=== PATIENT | female | born 1980 | race African-American/Black ===

== ENCOUNTER 2017-10-02 18:19 | Inpatient (IN) | payer OTHER ==
[~2017-10-02] VITALS: Ht 167.6 cm; Wt 82.5 kg
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
[2017-10-02 18:47] VITALS: BP 117/66; PULSE 96; RESP 18; TEMP 97.7; O2SAT 97
[2017-10-02 19:12] LABS: AUTOMATED NEUTROPHIL # 4.7 TH/MM3 (1.8-7.7); BASOPHIL % 0.6 % (0.0-2.0); EOSINOPHIL % 0.5 % (0.0-4.0); HEMATOCRIT 36.1 % (35.0-46.0); HEMOGLOBIN 12.5 GM/DL (11.6-15.3); LYMPH % 34.1 % (9.0-44.0); LYMPHOCYTE # 2.8 TH/MM3 (1.0-4.8); MEAN CELL VOLUME 89.5 FL (80.0-100.0); MEAN CORPUSCULAR HEMOGLOBIN 31.1 PG (27.0-34.0); MEAN CORPUSCULAR HGB CONC 34.7 % (32.0-36.0); MONO % 6.7 % (0.0-8.0); MONOCYTE # 0.5 TH/MM3 (0-0.9); NEUT % 58.1 % (16.0-70.0); PLATELET COUNT 305 TH/MM3 (150-450); RED BLOOD COUNT 4.03 MIL/MM3 (4.00-5.30); RED CELL DISTRIBUTION WIDTH 13.8 % (11.6-17.2); WHITE BLOOD COUNT 8.1 TH/MM3 (4.0-11.0)
[2017-10-02] MEDS ORDERED: OLANZapine IM 10 MG VIAL IM ONE (19:15)
[2017-10-02 19:23] VITALS: BP 101/62; PULSE 89; RESP 16; O2SAT 98
[2017-10-02 19:40] LABS: ALBUMIN 3.8 GM/DL (3.4-5.0); AST (GOT) 24 U/L (15-37); BICARBONATE 22.1 MEQ/L (21.0-32.0); BLOOD UREA NITROGEN 10 MG/DL (7-18); CALCIUM 8.7 MG/DL (8.5-10.1); CHLORIDE 115 MEQ/L (98-107); CREATININE 0.82 MG/DL (0.50-1.00); GLOMERULAR FILTRATION RATE 78 ML/MIN (>89); GLUCOSE,RANDOM 105 MG/DL (74-106); SODIUM (NA) 147 MEQ/L (136-145)
[2017-10-02 19:49] LABS: ALKALINE PHOSPHATASE 79 U/L (45-117); ALT (GPT) 22 U/L (10-53); TOTAL BILIRUBIN ADULT 0.5 MG/DL (0.2-1.0); TOTAL PROTEIN 8.1 GM/DL (6.4-8.2)
[2017-10-02 19:59] LABS: ACETAMINOPHEN LESS THAN 2.0 MCG/ML (10.0-30.0)
--- NOTE | 2017-10-02 20:48 | RADRPT ---
EXAM DATE/TIME: 10/02/2017 20:10 [facility] COMPARISON: No previous studies available for comparison. INDICATIONS : Cephalgia. RADIATION DOSE: 56.35 CTDIvol (mGy) MEDICAL HISTORY : Non-responsive. SURGICAL HISTORY : Non-responsive. ENCOUNTER: Initial ACUITY: 1 day PAIN SCALE: Non-responsive LOCATION: cranial TECHNIQUE: Multiple contiguous axial images were obtained of the head. Using automated exposure control and adj ustment of the mA and/or kV according to patient size, radiation dose was kept as low as reasonably a chievable to obtain optimal diagnostic quality images. DICOM format image data is available electro nically for review and comparison. FINDINGS: CEREBRUM: The ventricles are normal for age. No evidence of midline shift, mass lesion, hemorrhage or acute in farction. No extra-axial fluid collections are seen. POSTERIOR FOSSA: The cerebellum and brainstem are intact. The 4th ventricle is midline. The cerebellopontine angle i s unremarkable. EXTRACRANIAL: The visualized portion of the orbits is intact. SKULL: The calvaria is intact. No evidence of skull fracture. CONCLUSION: 1. No acute intracranial abnormalities. Right periorbital soft tissue swelling. Ulysses Clayton MD on October 02, 2017 at 20:44 Board Certified Radiologist. This report was verified electronically.
--- NOTE | 2017-10-02 21:00 | RADRPT ---
EXAM DATE/TIME: 10/02/2017 20:10 [facility] COMPARISON: No previous studies available for comparison. INDICATIONS : Neck pain. RADIATION DOSE: 23.47 CTDIvol (mGy) MEDICAL HISTORY : Non-responsive. SURGICAL HISTORY : Non-responsive. ENCOUNTER: Initial ACUITY: 1 day PAIN SCALE: Non-responsive LOCATION: neck TECHNIQUE: Volumetric scanning of the cervical spine was performed. Multiplanar reconstructions in the sagittal, coronal and oblique axial planes were performed. Using automated exposure control and adjustment o f the mA and/or kV according to patient size, radiation dose was kept as low as reasonably achievable to obtain optimal diagnostic quality images. DICOM format image data is available electronically f or review and comparison. FINDINGS: VERTEBRAE: Normal vertebral body height. ALIGNMENT: No evidence of subluxation. C2-C3: The bony spinal canal is normal in size. No evidence of disc bulge or herniation. The neural forami na are bilaterally patent. C3-C4: The bony spinal canal is normal in size. No evidence of disc bulge or herniation. The neural forami na are bilaterally patent. C4-C5: The bony spinal canal is normal in size. No evidence of disc bulge or herniation. The neural forami na are bilaterally patent. C5-C6: The bony spinal canal is normal in size. No evidence of disc bulge or herniation. The neural forami na are bilaterally patent. C6-C7: The bony spinal canal is normal in size. No evidence of disc bulge or herniation. The neural forami na are bilaterally patent. C7-T1: The bony spinal canal is normal in size. No evidence of disc bulge or herniation. The neural forami na are bilaterally patent. CONCLUSION: Normal examination for a patient of this age. Ulysses Clayton MD on October 02, 2017 at 20:57 Board Certified Radiologist. This report was verified electronically.
[2017-10-03 00:40] VITALS: BP 91/62; PULSE 74; RESP 16; O2SAT 95
[2017-10-03 17:05] VITALS: BP 132/62; PULSE 88; RESP 18; TEMP 99; O2SAT 98
--- NOTE | 2017-10-03 17:38 | PD ---
History of Present Illness Chief Complaint: Psychiatric Symptoms Time Seen by Provider: 17:20 Travel History International Travel<30 Days: No Contact w/Intl Traveler<30days: No Known affected area: No Legal Status Legal Status: Keen Act Keen Act Signed By: Duong Gregory History of Present Illness: History of Present Illness HPI This is a 37-year-old, single female with history of schizophrenia, bipolar disorder, who presents under Keen act initiated by the [employer]. According to the paperwork, "subject advised she has not taken her medication for schizophrenia due to it making her feel lazy. The subject advised she hear voices that tell her to give up. The subject drank a half bottle of liquor today to self medicate. The subject was running around fell to the ground hitting her head." Paramedics reported to ED provider's that the patient had been aggressive with family members. On arrival to the ED the patient had a blood alcohol level of 288. The patient was allowed to sober up clinically in monitored environment. She presented no behavioral concerns, no aggressive behavior. EMR is reviewed. No previous contact with [facility] psychiatry Department. Patient is seen in J pod. Case is discussed with nursing staff. She is awake, alert, [facility] in [facility], disheveled appearance, swelling of right eye noted. The patient is clinically sober at this time. No signs of withdrawal. Her speech is clear and logical, normal rate and tone. Affect is blunted. She reports auditory hallucinations and describes as" voices that I hear all day long and it is like a story." Mood is described as depressed. Patient denies suicidal or homicidal ideation, intent or plan. She states that they have been worse in the past month when she stopped taking her psychiatric medication due to having missed an appointment at the clinic she attends on [facility]. Past meds include trazodone, Abilify, Risperdal. Telephone call to her sister several times during the day to obtain collateral information at [phone]. Call is rejected. [facility] Past Medical History Bipolar Disorder: Yes Psychiatric: Yes (bipolar, schizophrenia) Schizophrenia: Yes Tetanus Vaccination: Unknown Influenza Vaccination: No ?: Not Psychiatric History Psychiatric History Hx Psychiatric Treatment: Bipolar disorder/schizophrenia. Has been treated at [facility] for 1 year. 2 previous suicide attempts by overdosing on pills as well as drinking rubbing alcohol. No history of self-injurious behavior. History of Inpatient Treatment: Yes Guns or firearms in home: No Social History Born in [facility]. She is single. She has a son approximately age 6 years who has been adopted by his grandmother. Patient is unemployed. She is pending social security disability. Hx Alcohol Use: Yes (1-2x week approx. 1-2 drinks at a time) Hx Tobacco Use: Yes (1/2 pack per week) Hx Substance Use: No Substance Use Type: Alcohol (Denies that she drinks on a daily basis) Hx of Substance Use Treatment: No Family Psychiatric History None reported. Allergies-Medications (Allergen,Severity, Reaction): Coded Allergies: cat dander (Verified Allergy, Unknown, 10/02/17) Review of Systems Psychiatric: COMPLAINS OF: Depression, Hallucinations Except as stated in HPI: all other systems reviewed are Neg Mental Status Examination Appearance: Appropriate, Disheveled ([facility]) Consciousness: Alert Orientation: x4 Motor Activity: Normal gait Speech: Unremarkable Language: Adequate Fund of Knowledge: Adequate Attention and Concentration: Adequate Memory: Unremarkable Mood: Sad Affect: Blunt Thought Process & Associations: Intact, Logical, Goal directed Thought Content: Appropriate Hallucination Type: Auditory Delusion Type: None Suicidal Ideation: No Suicidal Plan: No Suicidal Intention: No Homicidal Ideation: No Homicidal Plan: No Homicidal Intention: No Insight: Fair Judgment: Adequate [facility] Medical Decision Making Medical Record Reviewed: Yes Assessment/Plan This is a 37-year-old, single female with history of schizophrenia, bipolar disorder, who presents under Keen act initiated by the [employer]. According to the paperwork, "subject advised she has not taken her medication for schizophrenia due to it making her feel lazy. The subject advised she hear voices that tell her to give up. The subject drank a half bottle of liquor today to self medicate. The subject was running around fell to the ground hitting her head." Paramedics reported to ED provider's that the patient had been aggressive with family members. On arrival to the ED the patient had a blood alcohol level of 288. Patient was allowed to sober up clinically in secure environment. Patient continues to report auditory hallucinations, depressed mood. Attempts have been made to contact her sister for collateral but I have been unable to obtain any information as I have been unable to contact her sister. We have no previous history with this patient. In view of lack of collateral information the patient will remain under the Keen act and will remain on SMA list for disposition. Orders Orders Complete Blood Count With Diff (10/02/17 18:29) Comprehensive Metabolic Panel (10/02/17 18:29) Thyroid Stimulating Hormone (10/02/17 18:29) Ed Urine Pregnancytest Poc (10/02/17 18:29) Psych Screen (10/02/17 18:29) Drug Screen, Random Urine (10/02/17 18:29) Alcohol (Ethanol) (10/02/17 18:29) Salicylates (Aspirin) (10/02/17 18:29) Tylenol (Acetaminophen) (10/02/17 18:29) Ct Brain W/O Iv Contrast(Rout) (10/02/17 ) Ct Cerv Spine W/O Contrast (10/02/17 ) Olanzapine Inj (Zyprexa Inj) (10/02/17 19:15) Diet Regular Basic (10/03/17 Breakfast) Diet Regular Basic (10/03/17 Lunch) Results Vital Signs Date Time Temp Pulse Resp B/P (MAP) Pulse Ox O2 Delivery O2 Flow Rate FiO2 10/03/17 00:40 74 16 91/62 (72) 95 Room Air 10/02/17 19:23 89 16 101/62 (75) 98 Room Air 10/02/17 18:47 97.7 96 18 117/66 (83) 97 Room Air Laboratory Tests Test 10/02/17 17:43 White Blood Count 8.1 Red Blood Count 4.03 Hemoglobin 12.5 Hematocrit 36.1 Mean Corpuscular Volume 89.5 Mean Corpuscular Hemoglobin 31.1 Mean Corpuscular Hemoglobin Concent 34.7 Red Cell Distribution Width 13.8 Platelet Count 305 Mean Platelet Volume 8.0 Neutrophils (%) (Auto) 58.1 Lymphocytes (%) (Auto) 34.1 Monocytes (%) (Auto) 6.7 Eosinophils (%) (Auto) 0.5 Basophils (%) (Auto) 0.6 Neutrophils # (Auto) 4.7 Lymphocytes # (Auto) 2.8 Monocytes # (Auto) 0.5 Eosinophils # (Auto) 0.0 Basophils # (Auto) 0.0 CBC Comment DIFF FINAL Differential Comment Blood Urea Nitrogen 10 Creatinine 0.82 Random Glucose 105 Total Protein 8.1 Albumin 3.8 Calcium Level 8.7 Alkaline Phosphatase 79 Aspartate Amino Transf (AST/SGOT) 24 Alanine Aminotransferase (ALT/SGPT) 22 Total Bilirubin 0.5 Sodium Level 147 Potassium Level 3.7 Chloride Level 115 Carbon Dioxide Level 22.1 Anion Gap 10 Estimat Glomerular Filtration Rate 78 Thyroid Stimulating Hormone 3rd Gen 1.010 Salicylates Level LESS THAN 1.7 Urine Opiates Screen NEG Acetaminophen Level LESS THAN 2.0 Urine Barbiturates Screen NEG Urine Amphetamines Screen NEG Urine Benzodiazepines Screen NEG Urine Cocaine Screen NEG Urine Cannabinoids Screen NEG Ethyl Alcohol Level 288 Diagnosis Primary Impression: Medical clearance for psychiatric admission Additional Impressions: Alcohol intoxication Schizophrenia Problem Qualifiers Additional Impressions: Alcohol intoxication Qualified Codes: F10.920 - Alcohol use, unspecified with intoxication, uncomplicated Schizophrenia Qualified Codes: F20.89 - Other schizophrenia Dolores Luevano [facility] October 03, 2017 17:37
[2017-10-04 03:21] VITALS: BP 102/61; PULSE 80; RESP 18; O2SAT 98
[2017-10-04] MEDS ORDERED: ACETAMINOPHEN 325 MG TAB PO PRN (07:30)
[2017-10-04] MEDS ORDERED: LORazepam 2 MG/ML VIAL IV PUSH PRN ×4 (07:30)
[2017-10-04] MEDS ORDERED: ALUMINUM/MAGNESIUM/SIMETH 30 ML CUP PO PRN (07:30)
[2017-10-04] MEDS ORDERED: MAGNESIUM HYDROXIDE SUSP 30 ML CUP PO PRN (07:30)
[2017-10-04] MEDS ORDERED: LORazepam 2 MG/ML VIAL IM PRN ×2 (07:30)
[2017-10-04] MEDS ORDERED: LORazepam 0.5 MG TAB PO PRN (07:30)
[2017-10-04] MEDS ORDERED: LORazepam 1 MG TAB PO PRN ×2 (07:30)
[2017-10-04] MEDS ORDERED: FLUMAZENIL 0.5 MG/5 ML VIAL IV PUSH PRN (07:30)
[2017-10-04] MEDS ORDERED: LORazepam 2 MG TAB PO PRN (07:30)
[2017-10-04 10:13] VITALS: BP 124/74; PULSE 88; RESP 16; O2SAT 100
[2017-10-04] MEDS: NICOTINE 21 MG/24 HR PATCH T-DERMAL SCH (10:39)
--- NOTE | 2017-10-04 11:45 | HHI.HP ---
Provisional Diagnosis Admission Date October 04, 2017 at 07:28 [place] I. Schizophrenia [place] II. Deferred [place] III. Hypertension [place] IV. Unemployed, noncompliant with medication [place] V. 40 Certification of Person's Competence To Provide Express and Informed Consent I have personally examined Kimberly Milligan , a person being served at [facility] on, October 04, 2017 11:30. Express and informed consent means consent voluntarily given in writing, by a competent person, after sufficient explanation and disclosure of the subject matter involved to enable the person to make a knowing and willful decision without any element of force, fraud, deceit, duress, or other form of constraint or coercion. This person is 18 years of age or older, is not now known to be incompetent to consent to treatment with a guardian advocate, and does not have a health care surrogate or proxy currently making medical treatment decisions. I have found this person to be one of the following: [] Competent to provide express and informed consent, as defined above, for voluntary admission to this facility and is competent to provide express and informed consent for treatment. He/she has the consistent capacity to make well reasoned, willful, and knowing decisions concerning his or her medical or mental health treatment. The person fully and consistently understands the purpose of the admission for examination/placement and is fully capable of personally exercising all rights assured under [place] Incompetent to provide express and informed consent to voluntary admission, and this is incompetent to provide express and informed consent to treatment. The person must be transferred to involuntary status and a petition for a guardian advocate filed with the Circuit Court. [x] Refusing to provide express and informed consent to voluntary admission but is competent to provide express and informed consent for treatment. The person must be discharged or transferred to involuntary status. Form shall be completed within 24 hours of a person's arrival at the receiving facility and filed in the clinical record of each person: 1. Admitted on a voluntary basis 2. Permitted to provide express and informed consent to his/her own treatment 3. Allowed to transfer from involuntary to voluntary status 4. Prior to permitting a person to consent to his or her own treatment after having been previously found incompetent to consent to treatment. History of Present Illness Capacity: Has Capacity HPI The patient is a 37-year-old -[place] woman, single, domiciled in [place] with her sister, unemployed, supported by disability, first time at [facility], with psychiatric history of schizophrenia, bipolar disorder, for previous psychiatric hospitalizations, last hospitalization was in 2011 in [place], the patient received outpatient psychiatric care in [facility], she is supposed to be in Abilify, Risperdal and trazodone, but the patient has not been compliant her medications, she has medical history hypertension, the patient was seen yesterday by Ms. Luevano in the J-[facility], documentation reviewed. She presents under [place] act initiated by the Police Department. According to the paperwork, "subject advised she has not taken her medication for schizophrenia due to it making her feel lazy. The subject advised she hear voices that tell her to give up. The subject drank a half bottle of liquor today to self medicate. The subject was running around fell to the ground hitting her head." Paramedics reported to ED provider's that the patient had been aggressive with family members. On arrival to the ED the patient had a blood alcohol level of 288. The patient was allowed to sober up clinically in monitored environment. She presented no behavioral concerns, no aggressive behavior.EMR is reviewed. Case widely discussed with nurse in charge. On psychiatric evaluation the patient is calm, superficially cooperative in her bed. The patient reports that she does not really know the reason she is here. She says that she has been very depressed lately and she has been hearing voices telling her to kill herself. Patient reports that she has not been taking her medications lately "they may be tired". She says that she has been using alcohol more often to check down the voices, "but to be honest I do not drink alcohol every day". She denies the use of other illegal drugs, denies withdrawal, denies history detox and rehab. At this moment the patient denies suicidal and homicidal ideation. She seems to be logical, coherent and relevant, however, she has been internally preoccupied and paranoid in the unit. Patient is fully oriented 3, no attention deficit, no gross cognitive impairment present. Collateral information from sister, telephone [phone] was attempted unsuccessfully. Review of Systems Constitutional: DENIES: Diaphoretic episodes, Fatigue, Fever, Weight gain, Weight loss, Chills, Dizziness, Change in appetite, Night Sweats Endocrine: DENIES: Abnorml menstrual pattern, Heat/cold intolerance, Polydipsia , Polyuria, Polyphagia Eyes: DENIES: Blurred vision, Diplopia, Eye inflammation, Eye pain, Vision loss , Photosensitivity, Double Vision Ears, nose, mouth, throat: DENIES: Tinnitus, Hearing loss, Vertigo, Nasal discharge, Oral lesions, Throat pain, Hoarseness, Ear Pain, Running Nose, Epistaxis, Sinus Pain, Toothache, Odynophagia Respiratory: DENIES: Apneas, Cough, Snoring, Wheezing, Hemoptysis, Sputum production, Shortness of breath Cardiovascular: DENIES: Chest pain, Palpitations, Syncope, Dyspnea on Exertion , PND, Lower Extremity Edema, Orthopnea, Claudication Gastrointestinal: DENIES: Abdominal pain, Black stools, Bloody stools, Constipation, Diarrhea, Nausea, Vomiting, Difficulty Swallowing, Anorexia Genitourinary: DENIES: Abnormal vaginal bleeding, Dysmenorrhea, Dyspareunia, Sexual dysfunction, Urinary frequency, Urinary incontinence, Urgency, Hematuria , Dysuria, Nocturia, Vaginal discharge Musculoskeletal: DENIES: Joint pain, Muscle aches, Stiffness, Joint Swelling, Back pain, Neck pain Integumentary: DENIES: Abnormal pigmentation, Pruritus, Rash, Nail changes, Breast masses, Breast skin changes, Nipple discharge Hematologic/lymphatic: DENIES: Bruising, Lymphadenopathy Immunologic/allergic: DENIES: Eczema, Urticaria Neurologic: DENIES: Abnormal gait, Headache, Localized weakness, Paresthesias, Seizures, Speech Problems, Tremor, Poor Balance Psychiatric: COMPLAINS OF: Hallucinations, Suicidal Ideation, DENIES: Anxiety, Confusion, Mood changes, Depression, Agitation, Homicidal Ideation, Delusions Past Psych History Violence risk - self (6 mos) Increased Substance Abuse History Drugs/Alcohol past 12 months Patient reports occasional use of alcohol, denies marijuana, denies cocaine, heroine and mother illegal drugs Past Family Social History Coded Allergies: cat dander (Verified Allergy, Unknown, 10/02/17) Current Medications Medications (Trade) Dose Ordered Sig/Manda Route Start Time Stop Time Status Last Admin (Ativan) 1 mg Q6H PRN PO 10/04/17 07:30 (Ativan Inj) 1 mg Q6H PRN IM 10/04/17 07:30 (Tylenol) 650 mg Q4H PRN PO 10/04/17 07:30 (Milk Of Magnesia Liq) 30 ml DAILY PRN PO 10/04/17 07:30 (Mag-Al Plus Susp Liq) 30 ml Q6H PRN PO 10/04/17 07:30 (Habitrol 21 Mg Patch.24 Hr) 1 patch DAILY T-DERMAL 10/04/17 09:00 10/04/17 10:39 (Romazicon Inj) 0.2 mg Q1M PRN IV PUSH 10/04/17 07:30 (Ativan) 1 mg Q4H PRN PO 10/04/17 07:30 (Ativan Inj) 1 mg Q4H PRN IV PUSH 10/04/17 07:30 (Ativan) 2 mg Q2H PRN PO 10/04/17 07:30 (Ativan Inj) 2 mg Q2H PRN IV PUSH 10/04/17 07:30 (Ativan Inj) 2 mg Q1H PRN IV PUSH 10/04/17 07:30 (Ativan Inj) 2 mg Q15M PRN IV PUSH 10/04/17 07:30 Miscellaneous Information 1 HS T-DERMAL 10/04/17 21:00 Family Psych History No family psychiatric history Social History Patient was born and raised in [facility], she lives in [place] with her sister, she is single, unemployed, supported by [email or web address], her highest level of education is 11th grade Patient's Strengths (min. 2) Verbal communication/family support Physical Exam No tremors, no EPS, no stiffness, no withdrawal symptoms, she does present a mild psychomotor retardation. Vital Signs Vital Signs Date Time Temp Pulse Resp B/P (MAP) Pulse Ox O2 Delivery O2 Flow Rate FiO2 10/04/17 10:13 88 16 124/74 (91) 100 Room Air 10/03/17 17:05 99.0 Mental Status Examination Appearance: Appropriate, Disheveled (In [facility]) Consciousness: Alert Orientation: x4 Motor Activity: Normal gait Speech: Unremarkable Language: Adequate Fund of Knowledge: Adequate Attention and Concentration: Adequate Memory: Unremarkable Mood: Sad Affect: Blunt Thought Process & Associations: Intact, Logical, Goal directed Thought Content: Appropriate Hallucination Type: Auditory Delusion Type: None Suicidal Ideation: No Suicidal Plan: No Suicidal Intention: No Homicidal Ideation: No Homicidal Plan: No Homicidal Intention: No Insight: Poor Judgment: Poor Assessment & Plan Problem List: (1) Schizophrenia ICD Codes: F20.9 - Schizophrenia, unspecified Status: Acute Assessment & Plan: On psychiatric evaluation today the patient presents kind of distant, superficial, minimizing her recent actions that brought her to the hospital on the [place] act. Patient does report that she has been feeling depressed, worthless, helpless and hopeless, with increased suicidal thoughts, but no plan. She also reports perceptual disturbances, hearing voices making derogatory comments toward her and commanding her to commit suicide. Patient has a very flat affect, she seems to be internally preoccupied and paranoid. She has a long history of schizophrenia, multiple psychiatric hospitalizations, suicide attempts, and she has not been taking her psychotropics for a few weeks now. The patient has an elevated risk of danger to self and others due to the level of psychosis. Patient will be admitted in psychiatry. We will start Risperdal 1 mg twice daily, trazodone 100 mg at bedtime. Consult psychiatry for second opinion. ship worker intervention for psychosocial assessment, collateral information, individual and group therapies, to coordinate safe discharge. I also order CIWA for potential symptoms of alcohol withdrawal. (2) Alcohol intoxication ICD Codes: F10.929 - Alcohol use, unspecified with intoxication, unspecified Status: Acute Assessment & Plan: She is now clinically sober. No withdrawal symptoms present or reported. will start CIWA. Assessment & Plan Estimated LOS: days Problem Qualifiers (1) Schizophrenia: Qualified Codes: F20.89 - Other schizophrenia (2) Alcohol intoxication: Qualified Codes: F10.920 - Alcohol use, unspecified with intoxication, uncomplicated Hardeep Sierra MD October 04, 2017 11:45
[2017-10-04 12:21] VITALS: BP 143/97; PULSE 88; RESP 18; TEMP 98.7; O2SAT 98
[2017-10-04] MEDS: risperiDONE 0.5 MG TAB PO SCH ×2 (13:00→20:51)
[2017-10-04 18:17] VITALS: BP 132/84; PULSE 95; RESP 18; TEMP 98.1; O2SAT 100
[2017-10-04] MEDS: REMOVE OLD NICODERM (NICOTINE) PATCH T-DERMAL SCH (20:51)
[2017-10-04] MEDS ORDERED: traZODone HCL 100 MG TAB PO SCH (21:00)
[2017-10-05 05:46] VITALS: BP 111/70; PULSE 89; RESP 16; TEMP 97.7; O2SAT 99
[2017-10-05] MEDS: risperiDONE 0.5 MG TAB PO SCH (08:25)
[2017-10-05] MEDS: NICOTINE 21 MG/24 HR PATCH T-DERMAL SCH (08:25)
[2017-10-05 11:07] LABS: BICARBONATE 28.4 MEQ/L (21.0-32.0); BLOOD UREA NITROGEN 12 MG/DL (7-18); CALCIUM 8.6 MG/DL (8.5-10.1); CHLORIDE 106 MEQ/L (98-107); CHOLESTEROL 137 MG/DL (120-200); CHOLESTEROL/ HDL RATIO 2.34 RATIO; CREATININE 0.84 MG/DL (0.50-1.00); GLOMERULAR FILTRATION RATE 92 ML/MIN (>89); GLUCOSE,RANDOM 125 MG/DL (74-106); HDL CHOLESTEROL 58.4 MG/DL (40.0-60.0); LDL CHOLESTEROL 55 MG/DL (0-99); SODIUM (NA) 142 MEQ/L (136-145); TRIGLYCERIDES 119 MG/DL (42-150)
[2017-10-05 16:35] LABS: HEMOGLOBIN A1C 5.2 % (4.3-6.0)
[2017-10-05 16:48] VITALS: BP 134/86; PULSE 97; RESP 17; TEMP 97.2; O2SAT 99
--- NOTE | 2017-10-05 17:21 | PD.PSY.CON ---
Provisional Diagnosis Admission Date October 04, 2017 at 07:28 [place] I. Schizophrenia [place] II. Deferred [place] III. Hypertension [place] IV. Unemployed, noncompliant with medication [place] V. 40 History of Present Illness Service Psychiatry Consult Requested By Dr. Sierra Reason for Consult Second opinion Primary Care Physician No Primary Care Physician HPI The patient is a 37-year-old -[place] woman, single, domiciled in [place] with her sister, unemployed, supported by disability, first time at [facility], with psychiatric history of schizophrenia, bipolar disorder, for previous psychiatric hospitalizations, last hospitalization was in 2011 in [place], the patient received outpatient psychiatric care in [facility], she is supposed to be in Abilify, Risperdal and trazodone, but the patient has not been compliant her medications, she has medical history hypertension, the patient was seen yesterday by Ms. Luevano in the [facility], documentation reviewed. She presents under Keen act initiated by the Police Department. According to the paperwork, "subject advised she has not taken her medication for schizophrenia due to it making her feel lazy. The subject advised she hear voices that tell her to give up. The subject drank a half bottle of liquor today to self medicate. The subject was running around fell to the ground hitting her head." Paramedics reported to ED provider's that the patient had been aggressive with family members. On arrival to the ED the patient had a blood alcohol level of 288. The patient was allowed to sober up clinically in monitored environment. She presented no behavioral concerns, no aggressive behavior.EMR is reviewed. Case widely discussed with nurse in charge. On psychiatric evaluation the patient is calm, superficially cooperative in her bed. The patient reports that she does not really know the reason she is here. She says that she has been very depressed lately and she has been hearing voices telling her to kill herself. Patient reports that she has not been taking her medications lately "they may be tired". She says that she has been using alcohol more often to check down the voices, "but to be honest I do not drink alcohol every day". She denies the use of other illegal drugs, denies withdrawal, denies history detox and rehab. At this moment the patient denies suicidal and homicidal ideation. She seems to be logical, coherent and relevant, however, she has been internally preoccupied and paranoid in the unit. Patient is fully oriented 3, no attention deficit, no gross cognitive impairment present. Collateral information from sister, telephone [phone] was attempted unsuccessfully. 10/05/17 -second opinion Patient is a 29-year-old -[place] woman, single, domiciled with sister, unemployed on SSI, with a past psychiatric history of schizophrenia, bipolar disorder, with previous psychiatric admissions (last in 2011 [place]), has outpatient follow-up at [facility], with a past medical history significant for hypertension, who was brought in under Keen act initiated by police stating "subject advised she has not taken her medication for schizophrenia due to it making her feel lazy. The subject advised she hear voices that tell her to give up. The subject drank a half bottle of liquor today to self medicate. The subject was running around fell to the ground hitting her head" along with aggressive behavior with family in the context of alcohol intoxication. Patient was found sitting in hospital bed today noted B, cooperative. Patient recalls having had her sister called EMS because she fell, "I had a little to drink" recalls having 2 shots of liquor. Patient states that she usually drinks alcohol 1 to times a month, reports having run out of her medications back in July 2017 and having last seen her psychiatrist in 2016. Patient states that she has auditory hallucinations "off-and-on" and usually occurs when she is feeling depressed, stressed out. Patient reports last time she had auditory hallucination was months ago. Patient reports feeling depressed at this time with difficulty with sleep, racing thoughts "a little bit", denies any changes in appetite or concentration but is currently having feelings of guilt due to "family issues" which she did not elaborate on. Patient denies any recent suicide ideations, denies any previous suicide attempts and denies any perceptional services or delusions at this time. Patient states that she has reported to her flight communications officer, Tiesha Chanye ([address] ). Collateral contact his sister Nely Milligan [phone]. Past Family Social History Coded Allergies: cat dander (Verified Allergy, Unknown, 10/02/17) Current Medications Medications (Trade) Dose Ordered Sig/Manda Route Start Time Stop Time Status Last Admin (Ativan) 1 mg Q6H PRN PO 10/04/17 07:30 (Ativan Inj) 1 mg Q6H PRN IM 10/04/17 07:30 (Tylenol) 650 mg Q4H PRN PO 10/04/17 07:30 (Milk Of Magnesia Liq) 30 ml DAILY PRN PO 10/04/17 07:30 (Mag-Al Plus Susp Liq) 30 ml Q6H PRN PO 10/04/17 07:30 (Habitrol 21 Mg Patch.24 Hr) 1 patch DAILY T-DERMAL 10/04/17 09:00 10/04/17 10:39 (Romazicon Inj) 0.2 mg Q1M PRN IV PUSH 10/04/17 07:30 (Ativan) 1 mg Q4H PRN PO 10/04/17 07:30 (Ativan Inj) 1 mg Q4H PRN IV PUSH 10/04/17 07:30 (Ativan) 2 mg Q2H PRN PO 10/04/17 07:30 (Ativan Inj) 2 mg Q2H PRN IV PUSH 10/04/17 07:30 (Ativan Inj) 2 mg Q1H PRN IV PUSH 10/04/17 07:30 (Ativan Inj) 2 mg Q15M PRN IV PUSH 10/04/17 07:30 Miscellaneous Information 1 HS T-DERMAL 10/04/17 21:00 10/04/17 20:51 (risperDAL) 1 mg BID PO 10/05/17 21:00 (Benadryl) 50 mg HS PO 10/05/17 21:00 Patient's Strengths (min. 2) Verbal communication/family support Physical Exam Vital Signs Vital Signs Date Time Temp Pulse Resp B/P (MAP) Pulse Ox O2 Delivery O2 Flow Rate FiO2 10/05/17 16:48 97.2 97 17 134/86 (102) 99 10/04/17 10:13 Room Air Lab Results Test 10/05/17 10:13 Blood Urea Nitrogen 12 MG/DL Creatinine 0.84 MG/DL Random Glucose 125 MG/DL Calcium Level 8.6 MG/DL Sodium Level 142 MEQ/L Potassium Level 3.4 MEQ/L Chloride Level 106 MEQ/L Carbon Dioxide Level 28.4 MEQ/L Anion Gap 8 MEQ/L Estimat Glomerular Filtration Rate 92 ML/MIN Triglycerides Level 119 MG/DL Cholesterol Level 137 MG/DL LDL Cholesterol 55 MG/DL HDL Cholesterol 58.4 MG/DL Cholesterol/HDL Ratio 2.34 RATIO Mental Status Examination Appearance: Appropriate, Disheveled (In hospital [facility]) Consciousness: Alert Orientation: x4 Motor Activity: Normal gait Speech: Unremarkable Language: Adequate Fund of Knowledge: Adequate Attention and Concentration: Adequate Memory: Unremarkable Mood: Sad, Anxious Affect: Blunt Thought Process & Associations: Intact, Logical, Goal directed Thought Content: Appropriate Hallucination Type: Auditory (Denies at this time) Delusion Type: None Suicidal Ideation: No Suicidal Plan: No Suicidal Intention: No Homicidal Ideation: No Homicidal Plan: No Homicidal Intention: No Insight: Poor Judgment: Poor Assessment & Plan Problem List: (1) Schizophrenia ICD Codes: F20.9 - Schizophrenia, unspecified Status: Acute (2) Alcohol intoxication ICD Codes: F10.929 - Alcohol use, unspecified with intoxication, unspecified Status: Acute Assessment & Plan I have seen and examined this patient, reviewed the documentation, discussed personally with Dr. Sierra, and I agree and concur with his assessment and plan. Consult appreciated. Patient at this time will continue with risperidone 1 mg p.o. twice daily, will add Benadryl 50 mg p.o. at bedtime for sleep disturbance, continue rest of medications. Continue monitor mood and behavior. Patient was counseled on importance of abstinence from alcohol use. Collateral information pending from sister. Discharge planning in progress. Discharge Planning Patient return back to her sister's residence was psychiatrically stable. Problem Qualifiers (1) Schizophrenia: Qualified Codes: F20.89 - Other schizophrenia (2) Alcohol intoxication: Qualified Codes: F10.920 - Alcohol use, unspecified with intoxication, uncomplicated Rodo Noriega MD October 05, 2017 17:21
[2017-10-05] MEDS: risperiDONE 1 MG TAB PO SCH (21:00)
[2017-10-05] MEDS: REMOVE OLD NICODERM (NICOTINE) PATCH T-DERMAL SCH (21:00)
[2017-10-05] MEDS: diphenhydrAMINE HCL 50 MG CAP PO SCH (21:40)
[2017-10-06 05:48] VITALS: BP 105/65; PULSE 82; RESP 18; TEMP 97.9; O2SAT 98
[2017-10-06] MEDS: NICOTINE 21 MG/24 HR PATCH T-DERMAL SCH (09:00)
[2017-10-06] MEDS: risperiDONE 1 MG TAB PO SCH ×2 (09:18→21:17)
[2017-10-06 16:36] VITALS: BP 124/72; PULSE 88; RESP 17; TEMP 98.1; O2SAT 100
--- NOTE | 2017-10-06 17:42 | HHI.PYPN ---
Subjective Remarks Patient seen for follow-up, chart reviewed. Discussion with nursing staff reported that the patient seclusive to her room, denies SI, HI, or AVH. Patient was found ambulating on the unit noted B, cooperative. Patient states that she was able to rest last evening feels the medications "working pretty good" states her mood has been "okay". Patient reports tolerating medications well, mentions wanting to be referred to the [facility] in [place] for outpatient follow-up. Patient denies any SI, HI, or perceptual disturbances at this time. Collateral update from patient's sister which presents to express concerns of patient's history of nonadherence. Review of Systems Except as stated in HPI: all other systems reviewed are Neg Mental Status Examination Appearance: Appropriate, Disheveled (In [facility]) Consciousness: Alert Orientation: x4 Motor Activity: Normal gait Speech: Unremarkable Language: Adequate Fund of Knowledge: Adequate Attention and Concentration: Adequate Memory: Unremarkable Mood: Anxious Affect: Blunt (Slightly more reactive today) Thought Process & Associations: Intact, Logical, Goal directed Thought Content: Appropriate Hallucination Type: Auditory (Denies at this time) Delusion Type: None Suicidal Ideation: No Suicidal Plan: No Suicidal Intention: No Homicidal Ideation: No Homicidal Plan: No Homicidal Intention: No Insight: Fair Judgment: Impulsive Results Vitals/IOs Vital Signs Date Time Temp Pulse Resp B/P (MAP) Pulse Ox O2 Delivery O2 Flow Rate FiO2 10/06/17 16:36 98.1 88 17 124/72 (89) 100 10/04/17 10:13 Room Air Assessment & Plan Problem List: (1) Schizophrenia ICD Codes: F20.9 - Schizophrenia, unspecified Status: Acute (2) Alcohol intoxication ICD Codes: F10.929 - Alcohol use, unspecified with intoxication, unspecified Status: Acute Assessment & Plan Patient this time noted with improvement in mood, denying any SI, or perceptual disturbances today. Continue current treatment. Continue monitor mood and behavior. Discharge planning in progress. Justification for Cont. Inpt. At risk for further decompensation at lower level of care. Discharge Planning Patient will return to live with sister. Problem Qualifiers (1) Schizophrenia: Qualified Codes: F20.89 - Other schizophrenia (2) Alcohol intoxication: Qualified Codes: F10.920 - Alcohol use, unspecified with intoxication, uncomplicated Rodo Noriega MD October 06, 2017 17:42
[2017-10-06 18:09] LABS: BICARBONATE 28.2 MEQ/L (21.0-32.0); CALCIUM 8.3 MG/DL (8.5-10.1); CREATININE 0.76 MG/DL (0.50-1.00)
[2017-10-06] MEDS: REMOVE OLD NICODERM (NICOTINE) PATCH T-DERMAL SCH (21:00)
[2017-10-06] MEDS: diphenhydrAMINE HCL 50 MG CAP PO SCH (21:18)
[2017-10-07 06:12] VITALS: BP 130/79; PULSE 69; RESP 18; TEMP 98.1; O2SAT 96
[2017-10-07] MEDS: risperiDONE 1 MG TAB PO SCH ×2 (08:41→21:33)
[2017-10-07] MEDS: NICOTINE 21 MG/24 HR PATCH T-DERMAL SCH (08:41)
--- NOTE | 2017-10-07 11:27 | HHI.PYPN ---
Subjective Remarks Patient was seen and case discussed with nursing. Patient's CIWA 0. Patient says she is "feeling okay." She describes her mood as a 5 out of 10. She denies suicidal or homicidal ideation. Affect is blunted. Compliant with medications Mental Status Examination Appearance: Appropriate, Disheveled (In hospital [facility]) Consciousness: Alert Orientation: x4 Motor Activity: Normal gait Speech: Unremarkable Language: Adequate Fund of Knowledge: Adequate Attention and Concentration: Adequate Memory: Unremarkable Mood: Sad Affect: Blunt (Slightly more reactive today), Anxious Thought Process & Associations: Intact, Logical, Goal directed Thought Content: Appropriate Hallucination Type: Auditory (Denies at this time) Delusion Type: None Suicidal Ideation: No Suicidal Plan: No Suicidal Intention: No Homicidal Ideation: No Homicidal Plan: No Homicidal Intention: No Insight: Fair Judgment: Impulsive Results Vitals/IOs Vital Signs Date Time Temp Pulse Resp B/P (MAP) Pulse Ox O2 Delivery O2 Flow Rate FiO2 10/07/17 06:12 98.1 69 18 130/79 (96) 96 10/04/17 10:13 Room Air Intake and Output 10/07/17 10/07/17 10/08/17 08:00 16:00 00:00 Intake Total 480 ml Balance 480 ml Assessment & Plan Problem List: (1) Schizophrenia ICD Codes: F20.9 - Schizophrenia, unspecified Status: Acute (2) Alcohol intoxication ICD Codes: F10.929 - Alcohol use, unspecified with intoxication, unspecified Status: Acute Assessment & Plan Continue current treatment plan Justification for Cont. Inpt. Patient would decompensate in a less restrictive setting Problem Qualifiers (1) Schizophrenia: Qualified Codes: F20.89 - Other schizophrenia (2) Alcohol intoxication: Qualified Codes: F10.920 - Alcohol use, unspecified with intoxication, uncomplicated Ben Castaneda DO October 07, 2017 11:27
[2017-10-07 17:16] VITALS: BP 126/71; PULSE 81; RESP 18; TEMP 97.8; O2SAT 99
[2017-10-07] MEDS: diphenhydrAMINE HCL 50 MG CAP PO SCH (21:33)
[2017-10-07] MEDS: REMOVE OLD NICODERM (NICOTINE) PATCH T-DERMAL SCH (21:34)
[2017-10-08 06:08] VITALS: BP 102/60; PULSE 91; RESP 16; TEMP 98.1; O2SAT 100
[2017-10-08] MEDS: risperiDONE 1 MG TAB PO SCH ×2 (08:50→21:50)
[2017-10-08] MEDS: NICOTINE 21 MG/24 HR PATCH T-DERMAL SCH (08:51)
--- NOTE | 2017-10-08 11:27 | HHI.PYPN ---
Subjective Remarks Patient was seen and case discussed with nursing. CIWA is 0. Patient has been visiting with her sister. They are discussing appropriate behavior. Today, she admits any auditory or visual hallucinations. No delusions were elicited. Mildly guarded and vigilant during the interview. Compliant with medications. Denies suicidal or homicidal ideation intent or plan. Mental Status Examination Appearance: Appropriate, Disheveled (In [facility]) Consciousness: Alert Orientation: x4 Motor Activity: Normal gait Speech: Unremarkable Language: Adequate Fund of Knowledge: Adequate Attention and Concentration: Adequate Memory: Unremarkable Mood: Appropriate Affect: Anxious Thought Process & Associations: Intact, Logical, Goal directed Thought Content: Appropriate Hallucination Type: Auditory (Denies at this time) Delusion Type: Paranoid (Mildly vigilant) Suicidal Ideation: No Suicidal Plan: No Suicidal Intention: No Homicidal Ideation: No Homicidal Plan: No Homicidal Intention: No Insight: Fair Judgment: Impulsive Results Vitals/IOs Vital Signs Date Time Temp Pulse Resp B/P (MAP) Pulse Ox O2 Delivery O2 Flow Rate FiO2 10/08/17 06:08 98.1 91 16 102/60 (74) 100 10/04/17 10:13 Room Air Assessment & Plan Problem List: (1) Schizophrenia ICD Codes: F20.9 - Schizophrenia, unspecified Status: Acute (2) Alcohol intoxication ICD Codes: F10.929 - Alcohol use, unspecified with intoxication, unspecified Status: Acute Assessment & Plan Continue current treatment plan Justification for Cont. Inpt. Patient would decompensate in a less restrictive setting Problem Qualifiers (1) Schizophrenia: Qualified Codes: F20.89 - Other schizophrenia (2) Alcohol intoxication: Qualified Codes: F10.920 - Alcohol use, unspecified with intoxication, uncomplicated Ben Castaneda DO October 08, 2017 11:27
[2017-10-08 17:43] VITALS: BP 119/57; PULSE 105; RESP 18; TEMP 98.4; O2SAT 100
[2017-10-08] MEDS: diphenhydrAMINE HCL 50 MG CAP PO SCH (21:50)
[2017-10-08] MEDS: REMOVE OLD NICODERM (NICOTINE) PATCH T-DERMAL SCH (21:52)
[2017-10-09 06:26] VITALS: BP 117/74; PULSE 94; RESP 18; TEMP 97.7; O2SAT 100
[2017-10-09] MEDS: NICOTINE 21 MG/24 HR PATCH T-DERMAL SCH (07:38)
[2017-10-09] MEDS: risperiDONE 1 MG TAB PO SCH (08:31)
[2017-10-09] MEDS ORDERED: RISP1 PO (12:19)
[2017-10-09] MEDS ORDERED: DIPH50CA PO (12:19)
--- NOTE | 2017-10-09 12:20 | HHI.DS ---
Psychiatry Discharge Summary Inpatient Psychiatric care?: Yes Advance Directive: No Mental Health AdvanceDirective: No Health Care Proxy: No Admission Admission Date October 04, 2017 at 07:28 Admission Diagnosis: (1) Schizophrenia ICD Code: F20.9 - Schizophrenia, unspecified Brief History The patient is a 37-year-old -[place] Citizen woman, single, domiciled in [place] with her sister, unemployed, supported by disability, first time at [facility], with psychiatric history of schizophrenia, bipolar disorder, for previous psychiatric hospitalizations, last hospitalization was in 2011 in [place], the patient received outpatient psychiatric care in [facility], she is supposed to be in Abilify, Risperdal and trazodone, but the patient has not been compliant her medications, she has medical history hypertension, the patient was seen yesterday by Ms. Luevano in the [facility], documentation reviewed. She presents under [place] act initiated by the Police Department. According to the paperwork, "subject advised she has not taken her medication for schizophrenia due to it making her feel lazy. The subject advised she hear voices that tell her to give up. The subject drank a half bottle of liquor today to self medicate. The subject was running around fell to the ground hitting her head." Paramedics reported to ED provider's that the patient had been aggressive with family members. On arrival to the ED the patient had a blood alcohol level of 288. The patient was allowed to sober up clinically in monitored environment. She presented no behavioral concerns, no aggressive behavior.EMR is reviewed. Case widely discussed with nurse in charge. On psychiatric evaluation the patient is calm, superficially cooperative in her bed. The patient reports that she does not really know the reason she is here. She says that she has been very depressed lately and she has been hearing voices telling her to kill herself. Patient reports that she has not been taking her medications lately "they may be tired". She says that she has been using alcohol more often to check down the voices, "but to be honest I do not drink alcohol every day". She denies the use of other illegal drugs, denies withdrawal, denies history detox and rehab. At this moment the patient denies suicidal and homicidal ideation. She seems to be logical, coherent and relevant, however, she has been internally preoccupied and paranoid in the unit. Patient is fully oriented 3, no attention deficit, no gross cognitive impairment present. Collateral information from sister, telephone [phone] was attempted unsuccessfully. 10/05/17 -second opinion Patient is a 29-year-old -[place] Citizen woman, single, domiciled with sister, unemployed on SSI, with a past psychiatric history of schizophrenia, bipolar disorder, with previous psychiatric admissions (last in 2011 [place]), has outpatient follow-up at [facility], with a past medical history significant for hypertension, who was brought in under [place] act initiated by police stating "subject advised she has not taken her medication for schizophrenia due to it making her feel lazy. The subject advised she hear voices that tell her to give up. The subject drank a half bottle of liquor today to self medicate. The subject was running around fell to the ground hitting her head" along with aggressive behavior with family in the context of alcohol intoxication. Patient was found sitting in hospital bed today noted B, cooperative. Patient recalls having had her sister called EMS because she fell, "I had a little to drink" recalls having 2 shots of liquor. Patient states that she usually drinks alcohol 1 to times a month, reports having run out of her medications back in July 2017 and having last seen her psychiatrist in 2016. Patient states that she has auditory hallucinations "off-and-on" and usually occurs when she is feeling depressed, stressed out. Patient reports last time she had auditory hallucination was months ago. Patient reports feeling depressed at this time with difficulty with sleep, racing thoughts "a little bit", denies any changes in appetite or concentration but is currently having feelings of guilt due to "family issues" which she did not elaborate on. Patient denies any recent suicide ideations, denies any previous suicide attempts and denies any perceptional services or delusions at this time. Patient states that she has reported to her earth science technical officer, Tiesha Chaney ([address] Collateral contact his sister Nely Milligan [phone]. Tobacco Use In Past 30 Days: 5 or More Cigarettes/Day Alcohol Use: 4 or More Times Per Week Results Blood Pressure 117 / 74 Vital Signs Date Time Temp Pulse Resp B/P (MAP) Pulse Ox O2 Delivery O2 Flow Rate FiO2 10/09/17 06:26 97.7 94 18 117/74 (88) 100 Laboratory Results Test 10/05/17 10:13 Cholesterol Level 137 MG/DL (120-200) HDL Cholesterol 58.4 MG/DL (40.0-60.0) Hemoglobin A1c 5.2 % (4.3-6.0) LDL Cholesterol 55 MG/DL (0-99) Triglycerides Level 119 MG/DL (42-150) Imaging Last Impressions Head CT 10/02/17 0000 Signed Impressions: Service Date/Time: Monday, October 02, 2017 20:10 - CONCLUSION: 1. No acute intracranial abnormalities. Right periorbital soft tissue swelling. Ulysses Clayton MD Cervical Spine CT 10/02/17 0000 Signed Impressions: Service Date/Time: Monday, October 02, 2017 20:10 - CONCLUSION: Normal examination for a patient of this age. Ulysses Clayton MD Medications Approp Antipsych med options 1 - Minimum of three failed multiple trials of monotherapy. 2 - Documented plan to taper to monotherapy due to previous use of multiple meds OR cross-taper in progress at D/C. 3 - Documentation of augmentation of Clozapine. 4 - Justification other than those listed in allowable values 1-3, document here : Discharge Pt Condition on Discharge: Stable Discharge Disposition: Discharge Home Discharge Instructions Diet Instructions: As Tolerated, No Restrictions Activities you can perform: Regular-No Restrictions Scheduled Appointment: Taj Gunter Appointment Date: October 11, 2017 Appointment Time: 7:30am Mental Status Examination Appearance: Appropriate, Disheveled (In hospital [facility]) Consciousness: Alert Orientation: x4 Motor Activity: Normal gait Speech: Unremarkable Language: Adequate Fund of Knowledge: Adequate Attention and Concentration: Adequate Memory: Unremarkable Mood: Appropriate Affect: Anxious Thought Process & Associations: Intact, Logical, Goal directed Thought Content: Appropriate Hallucination Type: Auditory (Denies at this time) Delusion Type: Paranoid (Mildly vigilant) Suicidal Ideation: No Suicidal Plan: No Suicidal Intention: No Homicidal Ideation: No Homicidal Plan: No Homicidal Intention: No Insight: Fair Judgment: Impulsive Discharge/Advance Care Plan Health Problems: (1) Schizophrenia (2) Alcohol intoxication Goals to promote your health * To prevent worsening of your condition and complications * To maintain your health at the optimal level Directions to meet your goals Take your medications as prescribed Follow your dietary instruction Follow activity as directed Keep your appointments as scheduled Take your immunizations and boosters as scheduled If your symptoms worsen call your PCP, if no PCP go to Urgent Care Center or Emergency Room For 19/12 questions related to your inpatient stay or results of tests pending at discharge, please contact Dr. Rodo Noriega at Smoking is Dangerous to Your Health. Avoid second hand smoking Problem Qualifiers (1) Schizophrenia: Qualified Codes: F20.89 - Other schizophrenia Rodo Noriega MD October 09, 2017 12:20
== END 2017-10-09 18:15 | disposition home or self-care (01) | DRG 885 ==
LOC: NEPE 18:19 → NEDA 10-04 07:28 → H260 10-04 11:30
PROVIDERS: ADMIT Student in an Organized Health Care Education/Training Program; ATTEND Student in an Organized Health Care Education/Training Program
DX: F20.9 Schizophrenia, unspecified (principal); I10 Essential (primary) hypertension; F10.129 Alcohol abuse with intoxication, unspecified; F31.9 Bipolar disorder, unspecified; Z91.14 Patient's other noncompliance with medication regimen
CPT/HCPCS: 70450; 72125; 80048; 80053; 80061; 80307; 83036; 84443; 84703; 85025; 99285; Q0163